=== PATIENT | male | born 1945 | race African-American/Black ===

== ENCOUNTER 2017-01-28 14:06 | Inpatient (IN) | payer MEDICARE, OTHER ==
[~2017-01-28] VITALS: Ht 177.8 cm; Wt 78.9 kg
[~2017-01-28 14:06] MED LIST: TAMS-11
[2017-01-28] MEDS ORDERED: SODIUM CHLORIDE 0.9% 1,000 ML IV ONE (14:29)
[2017-01-28 15:17] LABS: BASOPHILS % 0.4 % (0.0-2.0); EOSINOPHILS % 0.2 % (0.0-5.0); HEMATOCRIT. 31.1 % (42.0-52.0); HEMOGLOBIN. 10.4 g/dL (14.0-18.0); LYMPHOCYTES % 10.6 % (20.0-50.0); MEAN CORPUSCULAR HEMOGLOBIN 29.4 pg (28.0-32.0); MEAN CORPUSCULAR HGB CONC 33.3 g/dL (31.0-37.0); MEAN CORPUSCULAR VOLUME 88.3 fL (80.0-94.0); MEAN PLATELET VOLUME 8.4 fl (7.4-10.4); MONOCYTES % 5.2 % (2.0-8.0); NEUTROPHILS % 83.6 % (40.0-76.0); PLATELET 157 x1000/uL (130-400); RED BLOOD CELL COUNT 3.52 mill/uL (4.7-6.1); RED CELL DISTRIBUTION WIDTH 15.4 % (11.6-14.6); WHITE BLOOD COUNT 3.5 x1000/uL (4.5-11.0)
[2017-01-28 15:21] LABS: INR 1.1; PARTIAL THROMBOPLASTIN TIME 26.5 sec (24.0-34.0); PROTHROMBIN TIME 11.2 sec
[2017-01-28 15:29] LABS: ALANINE AMINOTRANSFERASE 15 IU/L (13-61); ALBUMIN 2.7 g/dL (3.4-5.0); ANION GAP 16; CALCIUM 7.4 mg/dL (8.5-10.1); CARBON DIOXIDE 19 mEq/L (21-32); CHLORIDE 109 mEq/L (98-107); INDEX HEMOLYSI 1 (1-3); INDEX ICTERIC 1 (1-4); INDEX LIPEMIC 1 (1-3); MAGNESIUM 1.9 mg/dL (1.8-2.4); UREA NITROGEN BLOOD 66 mg/dL (7-21); eGFR 7 mL/min (>60)
[2017-01-28 15:30] LABS: CREATINE KINASE MB FRACTION 2.4 ng/mL (0.5-3.6); NT PRO B-TYPE NATRIURETIC PEP 24439 pg/mL (5-125); TROPONIN I 0.18 ng/mL (0.00-0.04)
[2017-01-28 22:30] VITALS: BP 150/107
[2017-01-28] MEDS ORDERED: DEXT 5%/0.45% NACL 1000ML 1,000 ML IV SCH (23:04)
[2017-01-28] MEDS ORDERED: ACETAMINOPHEN 325MG TABLET PO PRN (23:15)
[2017-01-28] MEDS ORDERED: LORAZEPAM 2MG/ML CPJ IV PRN (23:15)
[2017-01-28] MEDS ORDERED: HYDROMORPHONE HCL/PF 2MG/ML CPJ IV PRN (23:15)
[2017-01-28] MEDS ORDERED: ONDANSETRON HCL 4MG/2ML VIAL IV PRN (23:15)
[2017-01-28] MEDS ORDERED: FURO-152 PO ×2 (23:36→23:39)
[2017-01-28] MEDS ORDERED: GABA-533 PO (23:36)
[2017-01-28] MEDS ORDERED: HYDR-523 PO (23:36)
[2017-01-28] MEDS ORDERED: NIFE60TA35 PO (23:36)
[2017-01-28] MEDS ORDERED: P20 PO (23:36)
[2017-01-28] MEDS ORDERED: FOLI0.8T23 PO (23:36)
[2017-01-29] VITALS: BP 141/105
[2017-01-29 04:00] VITALS: BP 132/91
[2017-01-29 06:24] LABS: BASOPHILS % 0.6 % (0.0-2.0); EOSINOPHILS % 1.2 % (0.0-5.0); HEMATOCRIT. 31.4 % (42.0-52.0); HEMOGLOBIN. 10.4 g/dL (14.0-18.0); MEAN CORPUSCULAR HEMOGLOBIN 29.3 pg (28.0-32.0); MEAN CORPUSCULAR HGB CONC 33.2 g/dL (31.0-37.0); MEAN CORPUSCULAR VOLUME 88.2 fL (80.0-94.0); MEAN PLATELET VOLUME 8.6 fl (7.4-10.4); MONOCYTES % 10.3 % (2.0-8.0); NEUTROPHILS % 72.9 % (40.0-76.0); PLATELET 163 x1000/uL (130-400); RED BLOOD CELL COUNT 3.56 mill/uL (4.7-6.1); RED CELL DISTRIBUTION WIDTH 15.4 % (11.6-14.6); WHITE BLOOD COUNT 5.5 x1000/uL (4.5-11.0)
[2017-01-29] MEDS ORDERED: TAMSULOSIN HCL 0.4MG SR CAPSULE PO SCH (07:00)
[2017-01-29 07:08] LABS: MAGNESIUM 2.1 mg/dL (1.8-2.4); PHOSPHORUS 5.1 mg/dL (2.5-4.9); TROPONIN I 0.2 ng/mL (0.00-0.04)
[2017-01-29 07:19] LABS: CALCIUM 7.9 mg/dL (8.5-10.1)
[2017-01-29 08:13] VITALS: BP 152/106
[2017-01-29] MEDS: NIFEDIPINE XL 60MG TAB PO SCH (08:25)
[2017-01-29] MEDS: FUROSEMIDE 20MG TABLET PO SCH ×2 (08:26→16:12)
[2017-01-29] MEDS: FOLIC ACID/VITAMIN B COMP W-C TABLET PO SCH (08:26)
[2017-01-29] MEDS: GABAPENTIN 400MG CAPSULE PO SCH ×2 (08:26→16:12)
[2017-01-29] MEDS ORDERED: PNEUMOCOCCAL 23-VAL P-SAC VAC 0.5 ML IM ONE (09:00)
[2017-01-29] MEDS ORDERED: ENOXAPARIN 40MG/0.4ML SYR SUBCUT SCH (09:00)
[2017-01-29] MEDS ORDERED: PREDNISONE 20MG TABLET PO SCH (09:00)
[2017-01-29 10:01] LABS: CREATINE KINASE MB FRACTION 2.2 ng/mL (0.5-3.6)
[2017-01-29 12:26] VITALS: BP 140/89
[2017-01-29] MEDS: ENOXAPARIN 30MG/0.3ML SYR SUBCUT SCH (13:47)
[2017-01-29 16:21] VITALS: BP 140/94
[2017-01-29 20:00] VITALS: BP_SYST 140; BP_SYST 144; BP_SYST 159; BP_DIAS 79; BP_DIAS 91; BP_DIAS 97
[2017-01-29] MEDS: TAMSULOSIN HCL 0.4MG SR CAPSULE PO SCH (20:41)
[2017-01-29 23:58] LABS: CLARITY URINE CLEAR (CLEAR); COLOR URINE YELLOW (YELLOW); GLUCOSE URINE TRACE (NEGATIVE); KETONES URINE NEGATIVE (NEGATIVE); LEUKOCYTE ESTERASE URINE NEGATIVE (NEGATIVE); NITRITE URINE NEGATIVE (NEGATIVE); OCCULT BLOOD URINE 1+ (NEGATIVE); PROTEIN URINE 4+ (NEGATIVE); SPECIFIC GRAVITY URINE 1.017 (1.005-1.030)
[2017-01-30] VITALS: BP 139/98
[2017-01-30 00:31] LABS: BACTERIA URINE NONE SEEN; RBC URINE 0-2 /hpf (0-2); SQUAMOUS EPITHELIAL CELL URINE NONE SEEN /lpf (RARE/1+); WBC URINE 0-2 /hpf (0-2)
[2017-01-30 04:00] VITALS: BP 128/83
[2017-01-30 06:59] LABS: BASOPHILS % 0.8 % (0.0-2.0); EOSINOPHILS % 0.8 % (0.0-5.0); HEMOGLOBIN. 10.1 g/dL (14.0-18.0); LYMPHOCYTES % 22.3 % (20.0-50.0); MEAN CORPUSCULAR HEMOGLOBIN 29.7 pg (28.0-32.0); MEAN CORPUSCULAR HGB CONC 33.7 g/dL (31.0-37.0); MEAN PLATELET VOLUME 8.8 fl (7.4-10.4); MONOCYTES % 11.5 % (2.0-8.0); NEUTROPHILS % 64.6 % (40.0-76.0); PLATELET 149 x1000/uL (130-400); RED BLOOD CELL COUNT 3.41 mill/uL (4.7-6.1); RED CELL DISTRIBUTION WIDTH 14.9 % (11.6-14.6); WHITE BLOOD COUNT 4.2 x1000/uL (4.5-11.0)
[2017-01-30 07:16] LABS: CALCIUM 7.6 mg/dL (8.5-10.1); PHOSPHORUS 5.2 mg/dL (2.5-4.9)
[2017-01-30 08:00] VITALS: BP_SYST 158; BP_SYST 161; BP_SYST 179; BP_DIAS 104; BP_DIAS 114; BP_DIAS 115
[2017-01-30] MEDS: FOLIC ACID/VITAMIN B COMP W-C TABLET PO SCH (09:05)
[2017-01-30] MEDS: NIFEDIPINE XL 60MG TAB PO SCH (09:05)
[2017-01-30] MEDS: PREDNISONE 10MG TABLET PO SCH (09:05)
[2017-01-30] MEDS: ENOXAPARIN 30MG/0.3ML SYR SUBCUT SCH (09:06)
[2017-01-30] MEDS: GABAPENTIN 300MG CAPSULE PO SCH ×2 (10:06→16:37)
[2017-01-30] MEDS: CARVEDILOL 12.5MG TABLET PO SCH ×2 (10:41→21:00)
[2017-01-30 12:00] VITALS: BP 145/92
[2017-01-30] MEDS: NITROGLYCERIN OINT 1GM/INCH UDPKT TD SCH ×2 (13:58→21:37)
[2017-01-30] MEDS: HYDRALAZINE HCL 25MG TABLET PO SCH ×2 (14:10→21:37)
[2017-01-30 16:00] VITALS: BP 132/91
[2017-01-30 20:00] VITALS: BP_SYST 134; BP_SYST 146; BP_SYST 149; BP_DIAS 100; BP_DIAS 86; BP_DIAS 87
[2017-01-30] MEDS: TAMSULOSIN HCL 0.4MG SR CAPSULE PO SCH (21:00)
[2017-01-31] VITALS: BP 140/93
[2017-01-31 04:00] VITALS: BP 168/100
[2017-01-31] MEDS: NITROGLYCERIN OINT 1GM/INCH UDPKT TD SCH (06:05)
[2017-01-31] MEDS: HYDRALAZINE HCL 25MG TABLET PO SCH (06:06)
[2017-01-31 06:45] VITALS: BP 134/75
[2017-01-31 08:30] VITALS: BP 148/78
[2017-01-31] MEDS: ENOXAPARIN 30MG/0.3ML SYR SUBCUT SCH (08:50)
[2017-01-31] MEDS: FOLIC ACID/VITAMIN B COMP W-C TABLET PO SCH (10:12)
[2017-01-31] MEDS: PREDNISONE 10MG TABLET PO SCH (10:12)
[2017-01-31] MEDS: CARVEDILOL 12.5MG TABLET PO SCH (10:12)
[2017-01-31] MEDS: GABAPENTIN 300MG CAPSULE PO SCH (10:12)
[2017-01-31] MEDS ORDERED: COR6 PO (13:01)
[2017-01-31 13:03] VITALS: BP 149/81
== END 2017-01-31 14:25 | disposition home or self-care (01) | DRG 314 ==
LOC: ER 14:25 → 8WST 15:37
PROVIDERS: ADMIT Internal Medicine Nephrology; ATTEND Internal Medicine Nephrology
DX: I95.9 Hypotension, unspecified (principal); N18.6 End stage renal disease; N17.9 Acute kidney failure, unspecified; E44.0 Moderate protein-calorie malnutrition; I42.9 Cardiomyopathy, unspecified; I13.2 Hypertensive heart and chronic kidney disease with heart failure and with stage 5 chronic kidney disease, or end stage renal disease; I50.20 Unspecified systolic (congestive) heart failure; D63.8 Anemia in other chronic diseases classified elsewhere; F17.210 Nicotine dependence, cigarettes, uncomplicated; I25.10 Atherosclerotic heart disease of native coronary artery without angina pectoris; I27.2 Other secondary pulmonary hypertension; I48.91 Unspecified atrial fibrillation; N40.0 Benign prostatic hyperplasia without lower urinary tract symptoms; Z82.49 Family history of ischemic heart disease and other diseases of the circulatory system; Z86.73 Personal history of transient ischemic attack (TIA), and cerebral infarction without residual deficits; Z91.19 Patient's noncompliance with other medical treatment and regimen; Z68.25 Body mass index [BMI] 25.0-25.9, adult
CPT/HCPCS: 36415; 70551; 71010; 80048; 80053; 81001; 82550; 82553; 83735; 83880; 84100; 84484; 85025; 85610; 85730; 87040; 87086; 90732; 93005; 93306; 96360; 96361; 97116; 97162; 99285; J1650; J3490; J7030; J7050; J7512